=== PATIENT | male | born 1955 ===

== ENCOUNTER 2020-06-18 13:41 | Emergency (ER) | payer MEDICARE ==
[~2020-06-18] VITALS: Ht 177.8 cm; Wt 113.6 kg
[2020-06-18 13:42] VITALS: BP 154/83
== END 2020-06-18 14:40 | disposition home or self-care (01) ==
LOC: ER 13:41
DX: I10 Essential (primary) hypertension (principal); R07.89 Other chest pain; F17.220 Nicotine dependence, chewing tobacco, uncomplicated; Z72.89 Other problems related to lifestyle
CPT/HCPCS: 93005; 99283